=== PATIENT | male | born 1960 | race Caucasian/White ===

== ENCOUNTER → 2016-05-30 | Outpatient (CLI) | payer BC ==
[~2016-05-30] MED LIST: ALLERGY10 M1 PO; AMLODIPINE BESYL5 MG PO; ASPIRIN PO; CIPRO PO; FLOMAX0.4 MG PO; PERCOCET5/325 PO; PHENERGAN PO
--- NOTE | ~2016-05-30 | CT4 ---
[facility] A Service of [facility] RADIOLOGY TEXT RESULTS PATIENT: BENSON LARRY LOCATION: [facility] : 62 UNIT #: [id number] AGE: [address]: Isidro Flowers MD SEX: M ORDER DR: [id number] [place] [id number] O MR#: [id number] Acc #: [id number] NAME: BENSON LARRY : 1960 SEX: M STUDY DATE/TIME: 05/30/2016 13:21 UNIT: [facility] ROOM: STUDY DESCRIPTION: CT Abd and Pelv Wo Cont Attending Physician: Isidro Flowers M.D. Referring Physician: Isidro Flowers M.D. Ordering Physician: Isidro Flowers M.D. Primary Care Physician: Isidro Flowers M.D. MEDICAL IMAGING REPORT This report is preliminary unless electronic signature is present. EXAM CT of the abdomen and pelvis without contrast. DATE OF EXAM 05/30/2016 INDICATIONS Hematuria, right-sided abdominal pain since yesterday. PROCEDURE Noncontrast CT of the abdomen and pelvis. COMPARISON 08/10/2008 TECHNIQUE NOTE: This CT exam was performed with one or more of the following radiation dose reduction techniques: automatic exposure control, adjustment of mA and/or kV according to patient size, and iterative reconstruction. FINDINGS ABDOMEN WITHOUT CONTRAST: Included lung bases are clear. Hepatic cysts are unchanged. Spleen, adrenal glands, pancreas and gallbladder have an unremarkable unenhanced appearance. Bowel loops are nondilated. There are a few uncomplicated colonic diverticula. There is a 4 mm calculus in the proximal right ureter. Minimal hydronephrosis. Small nonobstructing calculus in the right kidney. PELVIS WITHOUT CONTRAST: No pelvic mass or fluid. No radiodense bladder calculus. No aggressive appearing bone lesion. [facility] A Service of [facility] RADIOLOGY TEXT RESULTS PATIENT: BENSON LARRY LOCATION: [facility] : 62 UNIT #: [id number] AGE: [address]: Isidro Flowers MD SEX: M ORDER DR: IMPRESSION 1. 4 mm calculus in the proximal right ureter. There is very mild right-sided hydronephrosis. 2. Nonobstructing calculus in the right kidney. NOTE Findings were discussed with Dr. Flowers at the time of this dictation. Dictated by... Panfilo Lindsey M.D. THIS IS AN ELECTRONICALLY VERIFIED REPORT Panfilo Lindsey M.D. at 05/30/2016 5:05 PM SD/dante TD: 05/30/2016 15:40 JOB #: [id number] MEDICAL IMAGING REPORT
== END | disposition home or self-care (01) ==
LOC: SCT 13:05
DX: N20.0 Calculus of kidney (principal); R31.9 Hematuria, unspecified; N13.2 Hydronephrosis with renal and ureteral calculous obstruction
CPT/HCPCS: 74176

== ENCOUNTER → 2016-09-07 | Day surgery (SDC) | payer BC ==
--- NOTE | ~2016-09-07 | OR ---
Unit #: [id number] #: [id number] Patient: BENSON LARRY [id number] [address] [place], [place] [address] [id number] O MR#: [id number] NAME: BENSON LARRY ROOM: Date of Procedure: 09/07/2016 Admission Date: 09/07/2016 Surgeon: George Pimentel M.D. : 1960 Attending Physician: George Pimentel M.D. Primary Care Physician: Isidro Flowers M.D. PROCEDURE OPERATIVE NOTE PREOPERATIVE DIAGNOSIS Colorectal cancer screening in an average risk patient. PROCEDURE Colonoscopy and polypectomy. POSTOPERATIVE DIAGNOSES 1. Patient had a single sessile polyp in the proximal sigmoid colon. This was about 5 mm in size. It was removed using snare polypectomy. 2. Mild sigmoid and descending colon diverticulosis. 3. The rest of the examination up to the cecum and terminal ileum was normal. The quality of the prep was excellent. RECOMMENDATIONS 1. Follow up the results of the polyp histology. 2. Consider repeat colonoscopy in 5 years. SEDATION USED MAC. PROCEDURE DESCRIPTION Following detailed explanation of the potential risks and complications of a colonoscopy - namely perforation, bleeding - and complications related to sedation, the patient was brought to the GI lab and laid in the left lateral decubitus position. A digital rectal examination was performed, which was normal. The lubricated tip of the Olympus video colonoscope was inserted through the anus and advanced under direct vision. The scope was advanced past the rectosigmoid into the descending colon. Scant, small diverticula were seen in this area. The scope tip was then navigated all the way up to the cecum with visualization of the ileocecal valve and the appendiceal orifice. Preparation was excellent with good visualization. Photo documentation was obtained. The last several inches of the terminal ileum were also visualized after intubation of the ileocecal valve and appeared normal. Successive segments of the colonic mucosa were examined upon withdrawal and appeared unremarkable except for a single sessile polyp in the proximal sigmoid colon. The latter was removed using snare polypectomy. Polyp was retried and sent for histology. No additional polyps were noted. Other than the scant diverticula seen in the left side, no other abnormalities were found. The patient did not have any internal hemorrhoids in the anal verge. The scope was then withdrawn. The patient returned to the recovery area. He tolerated the procedure without any postprocedure complications. Unit #: [id number] #: [id number] Patient: BENSON LARRY Dictated byNahid Friend TD: 09/07/2016 10:46 JOB #: [id number] PROCEDURE OPERATIVE NOTE Page 1 of 1 X George Pimentel MD X PROCEDURE OPERATIVE NOTE
== END | disposition home or self-care (01) ==
LOC: COPS 07:00
PROVIDERS: Internal Medicine Gastroenterology
PROC: 0DBN8ZZ Excision of Sigmoid Colon, Via Natural or Artificial Opening Endoscopic (ICD-10-PCS; principal; 2016-09-07 09:00)
DX: Z12.11 Encounter for screening for malignant neoplasm of colon (principal); D12.5 Benign neoplasm of sigmoid colon; K57.30 Diverticulosis of large intestine without perforation or abscess without bleeding; I10 Essential (primary) hypertension; Z79.899 Other long term (current) drug therapy; Z98.890 Other specified postprocedural states
CPT/HCPCS: 88305; J2250